=== PATIENT | female | born 1990 | race Two or more races ===

== ENCOUNTER 2020-11-19 16:00 | Emergency (ER) | payer MEDICAID, OTHER ==
[~2020-11-19] VITALS: Ht 157.5 cm; Wt 95.3 kg
[2020-11-19 16:30] VITALS: BP 104/58
[2020-11-19] MEDS ORDERED: HYDROcodone-ACET 5/325MG TAB PO ONE (17:15)
[2020-11-19] MEDS ORDERED: LIDOCAINE 1% HCL (LOCAL ANESTH.) INJ 20ML MDV ID ONE (17:15)
[2020-11-19] MEDS ORDERED: TETANUS-DIPTH-ACEL PERTUSSIS 0.5ML SYR Tdap IM ONE (17:30)
== END 2020-11-19 18:28 | disposition home or self-care (01) ==
LOC: ER 16:00
DX: S62.304B Unspecified fracture of fourth metacarpal bone, right hand, initial encounter for open fracture (principal); X58.XXXA Exposure to other specified factors, initial encounter; Y93.89 Activity, other specified; Y92.89 Other specified places as the place of occurrence of the external cause; Y99.8 Other external cause status
CPT/HCPCS: 12002; 29125; 73130; 90471; 90715; 99283; J2001